=== PATIENT | female | born 1995 | race Caucasian/White ===

== ENCOUNTER 2016-12-24 16:19 | Emergency (ER) | payer MEDICAID ==
[2016-12-24 16:20] VITALS: BMI 33.8
[2016-12-24 16:31] VITALS: TEMP 98.3
[2016-12-24] MEDS ORDERED: Sodium Chloride 0.9% 1,000 ML IV STA (16:53)
[2016-12-24 17:19] LABS: ADD MANUAL DIFF? NO
[2016-12-24 17:28] LABS: BASO # 0.03 K/mm3 (0.0-2.0); BASO % 0.3 % (0.0-3.0); EOS % 0.4 % (1.5-5.0); GRAN # 6.52 (1.4-6.5); GRAN % 68.4 % (50.0-68.0); HEMATOCRIT 41.5 % (36.0-48.0); LYMPH # 2.5 (1.2-3.4); LYMPH % 25.9 % (22.0-35.0); MEAN CELL VOLUME 88.5 fL (80.0-105.0); MEAN CORPUSCULAR HEMOGLOBIN 30.7 pg (25.0-35.0); MEAN CORPUSCULAR HGB CONC 34.7 g/dl (31.0-37.0); MEAN PLATELET VOLUME 11.7 fl (7.0-11.0); MONO # 0.5 (0.1-0.6); PLATELET COUNT 248 10^3/uL (120.0-450.0); RED CELL DISTRIBUTION WIDTH 12.3 % (11.5-14.5); WHITE BLOOD COUNT 9.5 10^3/ul (4.5-11.0)
[2016-12-24 17:32] LABS: ALB/GLOB RATIO 1.3 (1.1-1.8); ALKALINE PHOSPHATASE 77 U/L (38-133); ALT/SGPT 33 U/L (7-56); AST/SGOT 24 U/L (15-39); BILIRUBIN,TOTAL 0.6 mg/dL (0.2-1.3); BLOOD UREA NITROGEN 13 mg/dL (7-21); CARBON DIOXIDE 25 mmol/L (21-33); CHLORIDE 107 mmol/L (98-107); GFR AFRICAN-AMERICAN > 60; GLUCOSE,RANDOM 89 mg/dL (70-110); POTASSIUM 3.6 mmol/L (3.6-5.0); SODIUM 142 mmol/L (132-148)
[2016-12-24 17:35] LABS: INR 1.03 (0.93-1.08); PARTIAL THROMBOPLASTIN TIME 30.5 Seconds (23.7-30.8)
[2016-12-24 17:48] LABS: PH,URINE 6.5 (4.7-8.0); URINE BILIRUBIN NEGATIVE (NEGATIVE); URINE BLOOD TRACE-INTACT (NEGATIVE); URINE GLUCOSE (UA) NEGATIVE (NEGATIVE); URINE KETONE TRACE mg/dL (NEGATIVE); URINE LEUKOCYTE ESTERASE NEGATIVE Leu/uL (NEGATIVE); URINE PROTEIN TRACE mg/dL (<30 mg/dL); URINE UROBILINOGEN 0.2 E.U./dL (<1 E.U./dL)
[2016-12-24 17:57] LABS: URINE APPEARANCE CLEAR (CLEAR); URINE COLOR YELLOW (YELLOW)
[2016-12-24 18:01] LABS: URINE BACTERIA SMALL (NEG); URINE RBC 0 - 2 /hpf (0-2); URINE WBC 0 - 2 /hpf (0-6)
--- NOTE | 2016-12-24 19:01 | CT ---
EXAM: CT Abdomen and Pelvis Without Intravenous Contrast CLINICAL HISTORY: 21 years old, female; Pain; Abdominal pain; Localized; Right lower quadrant (rlq); Additional info: Rlq abdominal/back pain TECHNIQUE: Axial computed tomography images of the abdomen and pelvis without intravenous contrast. This CT exam was performed using one or more of the following dose reduction techniques: automated exposure control, adjustment of the mA and/or kV according to patient size, and/or use of iterative reconstruction technique. Coronal reformatted images were created and reviewed. EXAM DATE/TIME: 12/24/2016 4:52 PM COMPARISON: There are no prior studies for comparison. FINDINGS: Lower thorax: Heart size is normal. There is minimal scarring at the lung bases. ABDOMEN: Liver: unremarkable Gallbladder and bile ducts: unremarkable Pancreas: unremarkable Spleen: unremarkable Adrenals: unremarkable Kidneys and ureters: unremarkable Stomach and bowel: Stomach is partially distended. Rotation is normal. Small bowel is mildly distended with fluid and air. There is no obstruction. Terminal ileum is unremarkable. Appendix is unremarkable. Colon is incompletely distended which limits evaluation. There is scattered diverticulosis Appendix: See stomach and bowel PELVIS: Bladder: unremarkable Reproductive: Uterus and left adnexal structures are unremarkable. There is mild prominence of the right adnexa. ABDOMEN and PELVIS: Intraperitoneal space: There is a small amount of free fluid in the pelvis.There is no free air. Bones/joints: There are no acute osseous abnormalities Soft tissues: There is a fat-containing umbilical hernia. Vasculature: Vascular structures are unremarkable. Lymph nodes: There is shotty para-aortic adenopathy. There are mildly prominent right lower quadrant mesenteric nodes. Other findings: Motion CT IMPRESSION: No acute solid visceral abnormality; mild ileus, no obstruction; no CT findings of appendicitis or diverticulitis; small amount of fluid in the pelvis, physiologic versus recent cyst rupture; shotty right lower quadrant mesenteric adenopathy Additional findings as described above.
--- NOTE | 2016-12-24 19:24 | ED PDOC ---
Arrival/HPI - General Historian: Patient - General Chief Complaint: Abdominal Pain Time Seen by Provider: 12/24/16 16:45 - History of Present Illness Narrative History of Present Illness (Text): 12/24/16 19:20 21yo female with no PMHx and surgical history of who present to ED with complaint of intermittent sharp RLQ abdominal pain x few days with associated nausea. States her LMP was 2weeks ago and she thinks she might be . she denies vomiting, diarrhea, constipation, fever, chills, urinary symptoms, back pain, melena, hematemesis, any other complaint. (Tenzin Reed A ) Past Medical History - Provider Review Nursing Documentation Reviewed: Yes - Past History Past History: No Previous - Tetanus Immunization Tetanus Immunization: Up to Date - Past Medical History Past Medical History: No Previous - Cardiac Hx Cardiac Disorders: No - Pulmonary Hx Asthma: Yes - Neurological Hx Neurological Disorder: No - HEENT Hx HEENT Disorder: No - Renal Hx Kidney Stones: Yes - Endocrine/Metabolic Hx Endocrine Disorders: No - Hematological/Oncological Hx Blood Disorders: No - Integumentary Hx Dermatological Disorder: No - Musculoskeletal/Rheumatological Hx Musculoskeletal Disorders: No - Gastrointestinal Hx Gastrointestinal Disorders: No - Genitourinary/Gynecological Hx Genitourinary Disorders: No - Psychiatric Hx Depression: Yes Hx Emotional Abuse: No Hx Physical Abuse: No Hx Substance Use: No - Past Surgical History Past Surgical History: No Previous - Surgical History Hx Section: Yes Hx Tonsillectomy: Yes - Suicidal Assessment Feels Threatened In Home Enviroment: No Family/Social History - Physician Review Nursing Documentation Reviewed: Yes Family/Social History: Unknown Family HX Smoking Status: Heavy Smoker > 10 Cigarettes Daily Hx Alcohol Use: No Hx Substance Use: No Hx Substance Use Treatment: No Allergies/Home Meds Allergies/Adverse Reactions: Allergies No Known Allergies Allergy (Verified 12/24/16 16:25) Home Medications: Home Meds Medication Instructions Recorded Confirmed No Known Home Med 12/24/16 12/24/16 Review of Systems - Physician Review All systems were reviewed & negative as marked: Yes - Review of Systems Constitutional: Normal Eyes: Normal ENT: Normal Respiratory: Normal Cardiovascular: Normal Gastrointestinal: Abdominal Pain, Nausea. absent: Constipation, Diarrhea, Vomiting, Hematochezia, Hematemesis Genitourinary Female: Normal Musculoskeletal: Normal Skin: Normal Neurological: Normal Endocrine: Normal Hemo/Lymphatic: Normal Psychiatric: Normal Physical Exam Vital Signs Reviewed: Yes Temperature: Afebrile Blood Pressure: Normal Pulse: Regular Respiratory Rate: Normal Appearance: Positive for: Well-Appearing, Non-Toxic, Comfortable Pain Distress: None Mental Status: Positive for: Alert and Oriented X 3 - Systems Exam Head: Present: Atraumatic, Normocephalic Pupils: Present: PERRL Extroacular Muscles: Present: EOMI Conjunctiva: Present: Normal Mouth: Present: Moist Mucous Membranes Neck: Present: Normal Range of Motion Respiratory/Chest: Present: Clear to Auscultation, Good Air Exchange. No: Respiratory Distress, Accessory Muscle Use Cardiovascular: Present: Regular Rate and Rhythm, Normal S1, S2. No: Murmurs Abdomen: Present: Tenderness (RLQ tenderness), Normal Bowel Sounds, Other (Soft) . No: Distention, Peritoneal Signs, Rebound, Guarding, McBurney's Point Tender , Rovsing's Sign Present Back: Present: Normal Inspection. No: CVA Tenderness Upper Extremity: Present: Normal Inspection. No: Cyanosis, Edema Lower Extremity: Present: Normal Inspection. No: Edema Neurological: Present: GCS=15, CN II-XII Intact, Speech Normal Skin: Present: Warm, Dry, Normal Color. No: Rashes Psychiatric: Present: Alert, Oriented x 3, Normal Insight, Normal Concentration Vital Signs Temp Pulse Resp BP Pulse Ox 12/24/16 20:27 68 18 119/70 99 12/24/16 16:26 98.3 F 107 H 16 130/87 94 L Medical Decision Making ED Course and Treatment: I was available for consultation during PA evaluation. The chart was reviewed by me, and I agree with disposition. The documented history was done by the physician head of sales promotion. The documented physical exam was done by the physician head of sales promotion. The documented procedures were done by the physician head of sales promotion. ( Jefferson Lemons) IMPRESSION: No acute solid visceral abnormality; mild ileus, no obstruction; no CT findings of appendicitis or diverticulitis; small amount of fluid in the pelvis, physiologic versus recent cyst rupture; shotty right lower quadrant mesenteric adenopathy 12/25/16 00:13 Lab ws unremarkable. Abdominal Ct as noted above. Pt was comfortable in ED. Pt was however placed on OBS secondary to the abdominal CT finding. The result and plan was DW the pt and she agreed. Case was DW Dr. Young and he accepted pt for admission. (Diru,Happiness A) - Lab Interpretations Lab Results: 12/24/16 17:05 12/24/16 17:05 Lab Results 12/24/16 17:05: PT 11.1, INR 1.03, APTT 30.5 12/24/16 17:05: Sodium 142, Potassium 3.6, Chloride 107, Carbon Dioxide 25, Anion Gap 14, BUN 13, Creatinine 0.8, Est GFR ( Amer) > 60, Est GFR (Non- Af Amer) > 60, Random Glucose 89, Calcium 9.0, Total Bilirubin 0.6, AST 24, ALT 33, Alkaline Phosphatase 77, Total Protein 7.0, Albumin 3.9, Globulin 3.1, Albumin/Globulin Ratio 1.3 12/24/16 17:05: Urine Color Yellow, Urine Appearance Clear, Urine pH 6.5, Ur Specific [place] 1.020, Urine Protein Trace H, Urine Glucose (UA) Negative, Urine Ketones Trace H, Urine Blood Trace-intact H, Urine Nitrate Negative, Urine Bilirubin Negative, Urine Urobilinogen 0.2, Ur Leukocyte Esterase Negative , Urine RBC 0 - 2, Urine WBC 0 - 2, Ur Epithelial Cells 10 - 12, Urine Bacteria Small, Urine HCG, Qual Negative 12/24/16 17:05: WBC 9.5 D, RBC 4.69, Hgb 14.4, Hct 41.5, MCV 88.5, MCH 30.7, MCHC 34.7, RDW 12.3, Plt Count 248, MPV 11.7 H, Gran % 68.4 H, Lymph % (Auto) 25.9, [place] % (Auto) 5.0, Eos % (Auto) 0.4 L, Baso % (Auto) 0.3, Gran # 6.52 H, Lymph # 2.5, [place] # 0.5, Eos # 0.0, Baso # 0.03 - RAD Interpretation Radiology Orders: 12/24/16 16:52 ABD & PELVIS W/O PO OR IV CONT [CT] Stat - Medication Orders Current Medication Orders: Discontinued Medications Sodium Chloride (Sodium Chloride 0.9%) 1,000 mls @ 999 mls/hr IV .Q1H1M STA Stop: 12/24/16 17:53 Last Admin: 12/24/16 17:10 Dose: 999 mls/hr Ondansetron HCl (Zofran Inj) 4 mg IVP STAT STA Stop: 12/24/16 16:54 Last Admin: 12/24/16 17:11 Dose: 4 mg Disposition/Present on Arrival - Present on Arrival Any Indicators Present on Arrival: No History of DVT/PE: No History of Uncontrolled Diabetes: No Urinary Catheter: No History of Decub. Ulcer: No History Surgical Site Infection Following: None - Disposition Have Diagnosis and Disposition been Completed?: Yes Disposition Time: 19:20 - Disposition Diagnosis: Abdominal pain Disposition: HOSPITALIZED Condition: FAIR
--- NOTE | 2016-12-24 20:19 | CP.PCM.HP ---
<Lexi Arciniega - Last Filed: 12/24/16 20:27> History of Present Illness - History of Present Illness History of Present Illness: 21 year old female with no significant past medical history [place] [facility] [place] right lower quadrant abdominal pain. Patient stated the pain started earlier today suddenly. She describes the pain as sharp in quality, non- radiating, rates it 8/10 at the worst. Patient also reports feeling nauseous associated with the abdominal pain. She states the pain comes and goes every 2 hours and patient is currently not in pain. No prior history of the same. In the ED, CT abdominal showed mild ileus without obstruction.Patient denies recent change in diet, sick contacts, headache, weakness, fever, chills, shortness of breath, chest pain, coughs, vomiting, diarrhea, constipation, or urinary symptoms. Patient would like to sign out AMA because no one is able to look after her son at home. Risks and dangers of leaving against medical advice were explained to the patient in detail. Patient insisted on signing out AMA. Present on Admission - Present on Admission Any Indicators Present on Admission: No History of DVT/PE: No History of Uncontrolled Diabetes: No Review of Systems - Constitutional Constitutional: As Per HPI. absent: Chills, Fever, Weakness - EENT Eyes: As Per HPI. absent: Change in Vision, Discharge Ears: As Per HPI. absent: Dizziness Nose/Mouth/Throat: As Per HPI. absent: Nasal Trauma - Cardiovascular Cardiovascular: As Per HPI. absent: Chest Pain, Chest Pain at Rest, Chest Pain with Activity, Pedal Edema - Respiratory Respiratory: As Per HPI. absent: Cough, Hemoptysis, Wheezing - Gastrointestinal Gastrointestinal: As Per HPI, Abdominal Pain (RLQ), Nausea. absent: Constipation, Diarrhea, Heartburn, Loose Stools, Vomiting - Genitourinary Genitourinary: As Per HPI. absent: Flank Pain, Urinary Frequency, Urinary Hesitance - Reproductive: Female Reproductive:Female: As Per HPI - Menstruation Menstruation: As Per HPI - Musculoskeletal Musculoskeletal: As Per HPI. absent: Back Pain, Deformity, Muscle Cramps - Integumentary Integumentary: As Per HPI. absent: Dry Skin, Erythema - Neurological Neurological: As Per HPI. absent: Paresthesias, Syncope, Vertigo - Psychiatric Psychiatric: As Per HPI. absent: Anxiety, Depression - Endocrine Endocrine: As Per HPI - Hematologic/Lymphatic Hematologic: As Per HPI Past Patient History - Tetanus Immunizations Tetanus Immunization: Up to Date - Past Social History Smoking Status: Heavy Smoker > 10 Cigarettes Daily - CARDIAC Hx Cardiac Disorders: No - PULMONARY Hx Asthma: Yes - NEUROLOGICAL Hx Neurological Disorder: No - HEENT Hx HEENT Problems: No - RENAL Hx Kidney Stones: Yes - ENDOCRINE/METABOLIC Hx Endocrine Disorders: No - HEMATOLOGICAL/ONCOLOGICAL Hx Blood Disorders: No - INTEGUMENTARY Hx Dermatological Problems: No - MUSCULOSKELETAL/RHEUMATOLOGICAL Hx Musculoskeletal Disorders: No - GASTROINTESTINAL Hx Gastrointestinal Disorders: No - GENITOURINARY/GYNECOLOGICAL Hx Genitourinary Disorders: No - PSYCHIATRIC Hx Depression: Yes Hx Emotional Abuse: No Hx Physical Abuse: No Hx Substance Use: No - SURGICAL HISTORY Hx Section: Yes Hx Tonsillectomy: Yes Meds Allergies/Adverse Reactions: Allergies Allergy/AdvReac Type Severity Reaction Status Date / Time No Known Allergies Allergy Verified 12/24/16 16:25 Physical Exam - Constitutional Appears: Non-toxic, No Acute Distress - Head Exam Head Exam: ATRAUMATIC, NORMAL INSPECTION, NORMOCEPHALIC - Eye Exam Eye Exam: EOMI, Normal appearance, PERRL - ENT Exam ENT Exam: Mucous Membranes Moist - Neck Exam Neck exam: Positive for: Normal Inspection - Respiratory Exam Respiratory Exam: Clear to Auscultation Bilateral, NORMAL BREATHING PATTERN. absent: Rhonchi, Wheezes, Respiratory Distress - Cardiovascular Exam Cardiovascular Exam: REGULAR RHYTHM, RRR, +S1, +S2 - GI/Abdominal Exam GI & Abdominal Exam: Normal Bowel Sounds, Soft. absent: Tenderness Additional comments: Negative Patel's sign, negative McBurney point, no tenderness - Extremities Exam Extremities exam: Positive for: normal inspection - Back Exam Back exam: NORMAL INSPECTION - Neurological Exam Neurological exam: Alert, CN II-XII Intact, Oriented x3 - Psychiatric Exam Psychiatric exam: Normal Affect, Normal Mood - Skin Skin Exam: Dry, Intact, Normal Color, Warm Results - Vital Signs Recent Vital Signs: Last Vital Signs Temp 98.3 F 12/24/16 16:26 Pulse 107 H 12/24/16 16:26 Resp 16 12/24/16 16:26 BP 130/87 12/24/16 16:26 Pulse Ox 94 L 12/24/16 16:26 - Labs Result Diagrams: 12/24/16 17:05 12/24/16 17:05 Assessment & Plan - Assessment and Plan (Free Text) Assessment: 21 year old female with no significant past medical history presents with RLQ abdominal pain insisted on signing out against medical advice. Plan: Patient signed out AMA before transporting up to medical floor. <HectorSinakami - Last Filed: 12/25/16 01:45> Results - Vital Signs Recent Vital Signs: Last Vital Signs Temp 98.3 F 12/24/16 16:26 Pulse 68 12/24/16 20:27 Resp 18 12/24/16 20:27 BP 119/70 12/24/16 20:27 Pulse Ox 99 12/24/16 20:27 - Labs Result Diagrams: 12/24/16 17:05 12/24/16 17:05 Labs: Laboratory Results - last 24 hr 12/24/16 12/24/16 12/24/16 17:05 17:05 17:05 WBC 9.5 D RBC 4.69 Hgb 14.4 Hct 41.5 MCV 88.5 MCH 30.7 MCHC 34.7 RDW 12.3 Plt Count 248 MPV 11.7 H Gran % 68.4 H Lymph % (Auto) 25.9 [place] % (Auto) 5.0 Eos % (Auto) 0.4 L Baso % (Auto) 0.3 Gran # 6.52 H Lymph # 2.5 [place] # 0.5 Eos # 0.0 Baso # 0.03 PT INR APTT Sodium 142 Potassium 3.6 Chloride 107 Carbon Dioxide 25 Anion Gap 14 BUN 13 Creatinine 0.8 Est GFR ( Amer) > 60 Est GFR (Non-Af Amer) > 60 Random Glucose 89 Calcium 9.0 Total Bilirubin 0.6 AST 24 ALT 33 Alkaline Phosphatase 77 Total Protein 7.0 Albumin 3.9 Globulin 3.1 Albumin/Globulin Ratio 1.3 Urine Color Yellow Urine Appearance Clear Urine pH 6.5 Ur Specific [place] 1.020 Urine Protein Trace H Urine Glucose (UA) Negative Urine Ketones Trace H Urine Blood Trace-intact H Urine Nitrate Negative Urine Bilirubin Negative Urine Urobilinogen 0.2 Ur Leukocyte Esterase Negative Urine RBC 0 - 2 Urine WBC 0 - 2 Ur Epithelial Cells 10 - 12 Urine Bacteria Small Urine HCG, Qual Negative 12/24/16 17:05 WBC RBC Hgb Hct MCV MCH MCHC RDW Plt Count MPV Gran % Lymph % (Auto) [place] % (Auto) Eos % (Auto) Baso % (Auto) Gran # Lymph # [place] # Eos # Baso # PT 11.1 INR 1.03 APTT 30.5 Sodium Potassium Chloride Carbon Dioxide Anion Gap BUN Creatinine Est GFR ( Amer) Est GFR (Non-Af Amer) Random Glucose Calcium Total Bilirubin AST ALT Alkaline Phosphatase Total Protein Albumin Globulin Albumin/Globulin Ratio Urine Color Urine Appearance Urine pH Ur Specific [place] Urine Protein Urine Glucose (UA) Urine Ketones Urine Blood Urine Nitrate Urine Bilirubin Urine Urobilinogen Ur Leukocyte Esterase Urine RBC Urine WBC Ur Epithelial Cells Urine Bacteria Urine HCG, Qual Attending/Attestation - Attestation I have personally seen and examined this patient.: Yes I have fully participated in the care of the patient.: Yes I have reviewed all pertinent clinical information: Yes Notes (Text): 12/25/16 01:43 Patient was seen when she was in bed # 18 in the ER. Agree with history, physical examination, assessment and plan. Patient signed out AMA after she was admitted . DISCHARGE DIAGNOSIS:Left against medical advice. Non compliance. RLQ abdominal pain. Ileus. Hypoxia. Sinus tachycardia.
[2016-12-24 20:28] VITALS: BP 119/70; PULSE 68; RESP 18; O2SAT 99
== END 2016-12-24 20:35 | disposition short-term general hospital (02) ==
LOC: ED 16:19 → UNDOADMOB 19:19 → ERH 19:19 → ED 20:34
DX: R10.31 Right lower quadrant pain (principal)
CPT/HCPCS: 74176; 80053; 81001; 84703; 85025; 85610; 85730; 96374; 99284; J2405; J7040